=== PATIENT | female | born 1965 | race Caucasian/White ===

== ENCOUNTER 2021-06-20 09:35 | Emergency (ER) | payer BC | END 2021-06-20 12:58 | disposition home or self-care (01) | LOC: ER1 09:35 | DX: U07.1 COVID-19 (principal); Z23 Encounter for immunization | CPT/HCPCS: 71045; 99283; M0243 ==

== ENCOUNTER → 2022-04-02 | Outpatient (CLI) | payer BC | LOC: KOH-I 03-30 13:30 | DX: Z87.891 Personal history of nicotine dependence (principal) | CPT/HCPCS: 71271 ==